=== PATIENT | male | born 1945 | race Caucasian/White ===

== ENCOUNTER → 2019-03-06 | Outpatient (CLI) | payer MEDICARE, OTHER ==
--- NOTE | 2019-03-06 15:57 | RAD ---
Right lower extremity arterial duplex ultrasound 03/06/2019 INDICATION: Intermittent claudication, right foot pain COMPARISON STUDY: None Discussion: Ultrasound evaluation of the major arteries of the right lower extremity was performed including color Doppler imaging spectral analysis. Diffuse atherosclerotic vascular disease is noted. Right common femoral artery and profunda artery appear grossly patent. Right superficial artery appears patent proximally. There is a significant drop in velocity extending from the level of the distal SFA/proximal popliteal artery to the mid popliteal artery, where waveforms are severely blunted and velocities decrease from 92 cm/s to 10 cm/s. Findings suggest moderate to high-grade stenosis at this level. The posterior tibial artery appears to be excluded. Weak monophasic flow seen within the peroneal artery, anterior tibial artery, and the dorsalis pedis artery. IMPRESSION: 1. Probable moderate to high-grade stenosis level the distal SFA/proximal popliteal artery 2. Occlusion of the posterior tibial artery 3. Consider CT or conventional angiography for further evaluation as clinically indicated Electronically signed by: Saurabh Alaniz MD (03/06/2019 3:55 PM) [id number]
== END | disposition home or self-care (01) ==
LOC: US 13:37
PROVIDERS: ATTEND Family Medicine
DX: I70.211 Atherosclerosis of native arteries of extremities with intermittent claudication, right leg (principal)
CPT/HCPCS: 93926

== ENCOUNTER 2019-04-18 00:15 | Emergency (ER) | payer MEDICARE, OTHER ==
[~2019-04-18] VITALS: Ht 175.3 cm; Wt 105.0 kg
[2019-04-18 00:25] VITALS: BP 163/80
--- NOTE | 2019-04-18 00:44 | PHYS DOC ---
Adult General Chief Complaint Chief Complaint: COUGH HPI HPI Patient is a 74 year old male with a past medical history of hyperlipidemia presents with a chief complaint of coughing up blood. Patient states approximate 45 minutes prior to arrival he had a copper taste sensation in his mouth. Patient states he cough and spit out bright red blood. Patient denies any associated chest pain or shortness of breath. Patient denies any nasal bleeding. Patient does have a 55 year history of smoking. Review of Systems Review of Systems Constitutional: Denies fever or chills [] Eyes: Denies change in visual acuity, redness, or eye pain [] HENT: Denies nasal congestion or sore throat [positive cough] Respiratory:h or shortness of breath [] Cardiovascular: No additional information not addressed in HPI [] GI: Denies abdominal pain, nausea, vomiting, bloody stools or diarrhea [] : Denies dysuria or hematuria [] Musculoskeletal: Denies back pain or joint pain [] Integument: Denies rash or skin lesions [] Neurologic: Denies headache, focal weakness or sensory changes [] Endocrine: Denies polyuria or polydipsia [] All other systems were reviewed and found to be within normal limits, except as documented in this note. Allergies Allergies Allergies Coded Allergies Type Severity Reaction Last Updated Verified No Known Drug Allergies 04/18/19 No Physical Exam Physical Exam Constitutional: Well developed, well nourished, no acute distress, non-toxic appearance. [] HENT: Normocephalic, atraumatic, bilateral external ears normal, oropharynx moist, no oral exudates, nose normal. [] Eyes: PERRLA, EOMI, conjunctiva normal, no discharge. [] Neck: Normal range of motion, no tenderness, supple, no stridor. [] Cardiovascular:Heart rate regular rhythm, no murmur [] Lungs & Thorax: Bilateral breath sounds clear to auscultation [] Abdomen: Bowel sounds normal, soft, no tenderness, no masses, no pulsatile masses. [] Skin: Warm, dry, no erythema, no rash. [] Back: No tenderness, no CVA tenderness. [] Extremities: No tenderness, no cyanosis, no clubbing, ROM intact, no edema. [] Neurologic: Alert and oriented X 3, normal motor function, normal sensory function, no focal deficits noted. [] Psychologic: Affect normal, judgement normal, mood normal. [] EKG EKG [] Radiology/Procedures Radiology/Procedures [] Course & Med Decision Making Course & Med Decision Making Pertinent Labs and Imaging studies reviewed. (See chart for details) []Patient was evaluated for chief complaint. Workup consisted of laboratory analysis and radiologic imaging. Results reviewed and discussed with patient and family. Patient noted to have elevated creatinine of 1.5. Family states patient does have an elevated creatinine but she does not know what this baseline number is. Chest x-ray read by radiologist--- no acute abnormality. Patient had only 2 episodes of cough with bloody sputum while in the emergency department. He continues to deny any chest pain or shortness of breath. Unsure as the cause of patient's hemoptysis. Patient vital signs are stable. At this time I plan to discharge patient home I will place patient on an antibiotic to treat underlying infectious cause. Patient does have a 55 year history of smoking clinical concern and differential diagnosis could include a lung cancer. Radiologist's impression of x-ray no acute abnormalities. Patient advised to follow up with primary care physician for further evaluation and workup this symptoms continue. Dragon Disclaimer Dragon Disclaimer This electronic medical record was generated, in whole or in part, using a voice recognition dictation system. Departure Departure: Impression: Primary Impression: Hemoptysis, unspecified Additional Impression: Cough Disposition: HOME, SELF-CARE Condition: STABLE Referrals: SEVERINO HUERTA MD (PCP) Patient Instructions: Hemoptysis Scripts Azithromycin (ZITHROMAX) 250 Mg Tablet 1 PKG PO UD, #6 TAB Prov: TOMAS SMART I DO 04/18/19 Problem Qualifiers TOMAS SMART I DO Apr 18, 2019 00:44
[2019-04-18 01:17] LABS: BASO % 1 % (0-3); EOS # 0.3 x10^3/uL (0.0-0.7); EOS % 4 % (0-3); HEMATOCRIT 48.8 % (39.0-53.0); HEMOGLOBIN 16.6 g/dL (13.0-17.5); LYMPH # 2.1 x10^3/uL (1.0-4.8); LYMPH % 37 % (24-48); MEAN CORPUSCULAR HEMOGLOBIN 31 pg (25-35); MEAN CORPUSCULAR HGB CONC 34 g/dL (31-37); MEAN CORPUSCULAR VOLUME 89 fL (79-100); MONO # 0.5 x10^3/uL (0.0-1.1); MONO % 8 % (0-9); NEUT # 2.9 x10^3uL (1.8-7.7); NEUT % 50 % (31-73); PLATELET COUNT 185 x10^3/uL (140-400); RED BLOOD COUNT 5.46 x10^6/uL (4.30-5.70); RED CELL DISTRIBUTION WIDTH 15.1 % (11.5-14.5); WHITE BLOOD COUNT 5.8 x10^3/uL (4.0-11.0)
[2019-04-18 01:24] LABS: CALCIUM 8.8 mg/dL (8.5-10.1); CREATININE 1.5 mg/dL (0.7-1.3); GFR 45.6
[2019-04-18 01:29] LABS: ALBUMIN 3.5 g/dL (3.4-5.0); ALBUMIN/GLOBULIN RATIO 0.8 (1.0-1.7); TOTAL BILIRUBIN 0.4 mg/dL (0.2-1.0); TOTAL PROTEIN 7.9 g/dL (6.4-8.2)
--- NOTE | 2019-04-18 01:38 | RAD ---
CHEST AP ONLY Clinical Indication: Cough Comparison: None. Findings: The cardiomediastinal silhouette is normal. Lungs are clear. There is no pneumothorax. No pleural effusion is appreciated. No acute bone abnormality. IMPRESSION: No acute cardiopulmonary process. Electronically signed by: Arnaldo Salinas MD (04/18/2019 1:35 AM) [id number]
[2019-04-18] MEDS ORDERED: METHYLNALTREXONE 12 MG/0.6 ML VIAL. SQ ONE (01:45)
[2019-04-18] MEDS ORDERED: AZIT250T PO (01:51)
== END 2019-04-18 01:59 | disposition home or self-care (01) ==
LOC: ER 00:15
DX: R04.2 Hemoptysis (principal); E78.5 Hyperlipidemia, unspecified
CPT/HCPCS: 36415; 71045; 80053; 85025; 87070; 87205; 99284